=== PATIENT | female | born 1950 | race Two or more races ===

== ENCOUNTER 2024-02-14 01:09 | Day surgery (SDC) | payer MEDICARE, SELFPAY ==
--- NOTE | 2024-02-09 11:32 | PM.IMHP ---
H&P: HPI History of Present Illness Date/Time: 02/09/24 11:32 Chief Complaint: urge incontinence Narrative: >50% improved with trial of SNS. Review of Systems Review of Systems: All systems reviewed & are unremarkable except as noted in HPI and below Exam Narrative: NAD normal breathing A+O x3 Assessment and Plan Assessment and plan (1) Urge incontinence: Code(s): N39.41 - Urge incontinence Status: Acute Assessment and Plan: InterStim implant
[2024-02-10 08:39] VITALS: BMI 26.1
--- NOTE | 2024-02-10 09:17 | PC.NURSE ---
Addendum entered by Nandini Phillips, REED 02/13/24 09:55: late entry- 02/11/24 patient called office upset with time change so Merry at Dr Baez office changed time back original time of 8am. This RN called patient who states aware to arrive at 6am for 8am procedure and communications director will be completed in preop area. Addendum entered by Siena Pyle RN 02/10/24 15:12: TIME CHANGE CALLED TO PATIENT'S DAUGHTER, JOZEF. ARRIVE AT 8:00AM TO SIGN CONSENT WITH BUILDING CONSTRUCTION IRONWORKER. 8:30AM FOR PRE-OP AND SURGERY AT 10:30AM. HE RELAYS UNDERSTANDING. Original Note: Report to the Outpatient Waiting Room, entrance under the green pavilion [address], at time ___6:00am____ on date __02/14/24 . Planned Procedure Time: ___8:00am . Time changes happen often and if your time is changed the preop area will call you the afternoon before. - You and your visitor will be asked to self-screen and do not enter if you have any COVID symptoms. - A mask is optional within the hospital at this time. Patients may have clear liquids (water, carbonated beverages, clear teas, apple juice) until 3 hours prior to surgery with a maximum of 20 ounces. - No food from midnight until time of surgery. Take the following medications with a SIP of water the morning of surgery: ___NONE DO NOT STOP ANY OF YOUR OTHER PRESCRIPTION MEDICATIONS PRIOR TO SURGERY ?EXCEPT THE FOLLOWING Medications to discontinue per physician NONE Date to take last dose Please no make-up, nail frisian, hairspray, perfume, deodorant, or body powder the day of surgery. No jewelry (including any body piercings) or valuables the day of surgery, leave them at home. Please take a shower or bath the night before, or the morning of, surgery with an antibacterial soap. Wear comfortable, loose fitting clothing. Children are encouraged to wear pajamas. - Jewelry must be removed prior to entering the operating room. Rings and piercings that are not removed may be cut off. - The hospital will not accept responsibility for valuables. - Please leave all valuables, including medications, at home the day of surgery. If you are going home after surgery, a licensed electric pile driver operator must drive you home. - NO public transportation without another adult if you receive anesthesia. - We recommend that an adult stay with you for 24 hours following discharge. - We also recommend that you do not drive, make important decision, drink alcoholic beverages, or take any drugs that were not prescribed by your health care provider for at least 24 hours after your discharge time. For Pediatric surgeries, we recommend two adults accompany the child home. Follow any additional instructions given to you from your surgeon. If you or anyone in your household have experienced Covid symptoms in the past week, please notify your surgeon or the nurse liaison at the phone number below for possible testing. Telephone instructions given to ____DAUGHTERAMELIA and asked if any additional questions and then verbalized understanding. Patient advised to call surgeon office or pre surgery nurse liaison [phone] if any additional questions.
--- NOTE | 2024-02-13 11:40 | P.PNAN_ITS ---
Anes - Initial Pre Proc Eval Procedure: Operation Date: 02/14/24 08:00 Proposed Procedures p Neuro Stimulator Implant - Ricardo Baez MD Date/Time: 02/13/24 11:40 Surgeon: Ricardo Baez MD Pre Op Diagnosis: [place] Incont Patient Data Age: 73 Gender: F Height: 1.61 m Weight: 68 kg Allergies Allergy/AdvReac Type Severity Reaction Status Date / Time No Known Allergies Allergy Verified 02/14/24 06:28 Home Medications Medication Instructions Recorded Confirmed Type atorvastatin 10 mg tablet 10 mg PO DAILY 02/10/24 02/14/24 History hydrocodone 5 mg-acetaminophen 325 1 tablet PO Q6H PRN pain #20 tabs 02/14/24 Rx mg tablet Patient hx anesthesia problems: none Family hx anesthesia problems: none Results Review: All pre-operative results and documents have been reviewed as part of the pre- operative evaluation. PMFSH Past Medical History Medical History (Updated 02/13/24 @ 11:40 by Darwin Evans DO) Hyperlipidemia Social History Social History Smoking packs per day: 0.5 Smoking cigarettes per day: 10.0 Years smoked: 35 Smoking pack-years: 17.50 Smoking status: Current every day smoker Tobacco type: cigarettes Additional smoking assessment comments: CURRENTLY SMOKES 1-2 CIG/DAY Living arrangements: with family Additional living arrangements comments: SP[facility]SE Spiritual care concerns: No Anes - Eval Final PreProcedure Day of Procedure 02/13/24 11:40 Patient weight: overweight Heart: regular rate and rhythm Lungs: clear to auscultation Airway: Mallampati scale class II Neurological: alert and oriented Last oral intake: >/= 8 hours ASA classification: II Emergent: no Anesthetic plan: proceed Anesthesia type and monitoring: general GIVS and standard monitoring Results Review: All pre-operative results and documents have been reviewed as part of the pre- operative evaluation. Informed Consent: The patient's anesthetic plan and its attendant risks and benefits were discussed with the patient/family/POA. Questions were solicited and answers provided to the satisfaction of the patient/family/POA.
--- NOTE | ~2024-02-14 | XR_ITS ---
EXAMINATION: FLUORO NEUROSTIM INSERT < 1HR DATE: 02/14/2024 08:27 INDICATION: Neurostimulator implant TECHNIQUE: 2 fluoroscopic images in frontal and lateral projections of the sacrum were obtained. The amount of fluoroscopy time used during this procedure was 0.7 minutes. COMPARISON: None. FINDINGS: Distal tip of an Interstim lead extends from posterior to anterior through a sacral neural foramen. Markers are not included to indicate the site of the neural foramen IMPRESSION: 1. Interstim lead extends through a sacral neural foramen. See procedure note for further detail. Reviewed, dictated and finalized at location A. IMPRESSION: 1. Interstim lead extends through a sacral neural foramen. See procedure note f or further detail.
--- NOTE | 2024-02-14 04:36 | WPDHPUPDATE1 ---
History and Physical Update Update Date/Time: 02/14/24 04:36 History and Physical has been reviewed, including an updated exam of the patient. There are NO changes in the patient's condition. Risks, benefits, and alternatives have been discussed and questions answered. Patient agrees to proceed with procedure.
[2024-02-14 06:40] VITALS: BP 131/73; PULSE 77; RESP 14; TEMP 36.1; O2SAT 100
[2024-02-14] MEDS: LACTATED RINGERS 1,000 ML 30 ML IV CONT (07:11)
--- NOTE | 2024-02-14 07:28 | SUR.PREOP ---
baling machine operator services used to clarify that patient has full understanding of consent form and procedure #[id number]
[2024-02-14] MEDS: ceFAZolin 2 GM/D5W 50 ML 2 GM/50 ML BAG IVPB (08:10)
[2024-02-14] MEDS: ceFAZolin SODIUM 1 GM VIAL (08:13)
[2024-02-14] MEDS: BUPIVACAINE/EPINEPHRINE 0.5% 50 ML VIAL 20 ML INFILTRATE (08:13)
[2024-02-14 08:30] VITALS: BP 106/65; PULSE 79; RESP 14; O2SAT 97
--- NOTE | 2024-02-14 08:33 | P.OP_ITS ---
Procedure Note - Detailed Date of Procedure 02/14/24 Pre-op Diagnosis Urge Incont Post-op Diagnosis Same Procedure Performed Implantation of sacral lead 99208 Placement of implantable pulse generator 94894 Complex neurostimulator programming impedance check 11246 Surgeon Ricardo Baez MD Anesthesia MAC and Local Indications This is a patient with refractory urge urinary incontinence. They have undergone a successful trial of sacral nerve stimulation. They present today for permanent implantation. They understand the risks of bleeding, infection, decreased efficacy, need for revision and battery changes. They agree to proceed Findings See dictated Description of Procedure They were correctly identified and informed consent was obtained. There brought to the operating room. There placed in the prone position. There given appropriate perioperative antibiotics. A time-out performed. I used fluoroscopy to saige out my sacral landmarks in the AP and the lateral orientation. I anesthetized the skin. I entered the S3 foramen. I monitored the needle with fluoroscopy. I got appropriate Lyndsay and toe response at a low threshold. I made a skin nataliya. I placed a stylet. I placed the lead i ntroducer sheath. I thinned placed and deployed to my lead. I got appropriate responses again at a low threshold. I marked out the site of the pulse generator. I anesthetized the skin and made that incision. I created a subcutaneous pocket to house the pulse generator. I tunneled the lead towards this pocket. Appropriate connections were made between the lead and the battery. It was placed in the pocket. It was programmed and impedances were checked and found to be normal. I irrigated out all wounds. I ensured hemostasis. I closed the subcutaneous tissues with 2 Vicryl. I closed the skin with 4 0 Vicryl. Glue was applied. There then awakened and transferred to the PACU in stable condition. Implants Sacral neurostimulator Estimated Blood Loss 5 Drains No Packing No Pathology None sent Condition Stable Disposition PACU
[2024-02-14] MEDS: fentaNYL CITRATE INJ (*CRX) 100 MCG/2 ML VIAL 25 MCG IV PUSH (08:51)
[2024-02-14 09:00] VITALS: BP 118/66; PULSE 82; RESP 16; O2SAT 97
[2024-02-14] MEDS: oxyCODONE HCL (*CRX) 5 MG TAB IR PO (09:23)
[2024-02-14 09:30] VITALS: BP 127/77; PULSE 79; RESP 16
== END 2024-02-14 10:07 | disposition home or self-care (01) ==
PROVIDERS: PCP Family Medicine; Visit Provider Urology
PROC: (CPT 64561; principal; 2024-02-14 08:00)
DX: N39.41 Urge incontinence (principal); E78.5 Hyperlipidemia, unspecified; F17.210 Nicotine dependence, cigarettes, uncomplicated
CPT/HCPCS: 64561; 64590; 99199; A9270; C1767; C1778; C1787; J0690; J1100; J1885; J2250; J2405; J2704; J3010; J7120